=== PATIENT | female | born 1990 | race Caucasian/White ===

== ENCOUNTER 2022-11-26 20:35 | Outpatient (CLI) | payer OTHER, SELFPAY ==
--- NOTE | 2022-11-26 21:31 | PC.OBNST ---
NST Note NST Note Start: 11/26/22 20:44 Freq: ONCE Status: Active Protocol: Document 11/26/22 21:29 GUILLAUME (Rec: 11/26/22 21:31 GUILLAUME [id number]) NST Note 4 Para (# of births) 2 EDC 01/13/23 Gestational Age In Weeks & Days 33 Weeks & 1 Days Patient Presented with Complaint(s) of Other Other Complaints Dcreased movement Reactive Yes Appropriate for Gestational Age Yes GEO [place] RNC Date 11/26/22 Reactive Yes Appropriate for Gestational Age Yes RN Dr. Ferraro reviewed tracing Date 11/26/22 OB NST charge Yes Complete NST Note via Write Note Yes The provider's electronic signature indicates the NST is reactive/appropriate for gestational age. *Note to provider: If an addendum is required, open the patient's chart and click on the note under the Nurse/Allied Health tab.
== END 2022-11-26 21:23 | disposition home or self-care (01) ==
LOC: OB OUT 20:45 → OB 21:32
PROVIDERS: Visit Provider Family Medicine
DX: O36.8130 Decreased fetal movements, third trimester, not applicable or unspecified (principal); Z3A.33 33 weeks gestation of pregnancy
CPT/HCPCS: 59025; 99213